=== PATIENT | female | born 1995 | race Caucasian/White ===

== ENCOUNTER 2020-05-02 16:30 | Inpatient (IN) | payer MEDICAID, SELFPAY ==
[~2020-05-02] VITALS: Ht 157.5 cm; Wt 107.5 kg
[2020-05-02] MEDS ORDERED: PNV91TAB8 PO (17:19)
[2020-05-02] MEDS ORDERED: METHYLERGONOVINE 0.2 MG/ML AMP IM PRN (17:20)
[2020-05-02] MEDS ORDERED: CARBOPROST 250 MCG/ML AMP IM PRN (17:20)
[2020-05-02 17:45] VITALS: BP 129/80
[2020-05-02] MEDS ORDERED: MISOPROSTOL 200 MCG TAB VG SCH (18:00)
[2020-05-02 18:09] LABS: BASOPHILS % (AUTO) 0.4 % (0.0-2.0); EOSINOPHILS % (AUTO) 0.5 % (0.0-4.0); HEMATOCRIT 37.9 % (36-48); HEMOGLOBIN 12.9 g/dL (12.0-16.0); LYMPHOCYTES # (AUTO) 2.1 K/uL (2.5-16.5); LYMPHOCYTES % (AUTO) 23.9 % (20.5-51.1); MEAN CORPUSCULAR HEMOGLOBIN 30 pg (27-31); MEAN CORPUSCULAR HGB CONC 34 g/dL (33-37); MEAN CORPUSCULAR VOLUME 89.1 fL (80-94); MONOCYTES # (AUTO) 0.7 K/uL (0.8-1.0); MONOCYTES % (AUTO) 7.6 % (1.7-9.3); NEUTROPHILS # (AUTO) 5.9 K/uL (1.8-7.7); NEUTROPHILS % (AUTO) 67.6 % (42.2-75.2); PLATELET COUNT (AUTO) 276 K/uL (140-450); RED BLOOD CELL COUNT(AUTO) 4.25 MIL/uL (4.20-5.40); RED CELL DISTRIBUTION WIDTH 14.2 % (11.6-13.7); WHITE BLOOD COUNT (AUTO) 8.7 K/uL (4.8-10.8)
[2020-05-02 18:19] LABS: APPEARANCE,URINE CLEAR (CLEAR); BILIRUBIN,URINE NEGATIVE (NEGATIVE); BLOOD, URINE NEGATIVE (NEGATIVE); COLOR,URINE DARK YELLOW (YELLOW); LEUKOCYTE ESTERASE ,URINE NEGATIVE (NEGATIVE); NITRITE, URINE NEGATIVE (NEGATIVE); UGLUCOSE NEGATIVE (NEGATIVE)
[2020-05-02 18:32] LABS: ALBUMIN 2.8 g/dL (3.4-5.0); CARBON DIOXIDE 23.8 mmol/L (21-32); CREATININE 0.6 mg/dL (0.6-1.3); POTASSIUM 3.8 mmol/L (3.5-5.1); TOTAL BILIRUBIN 0.4 mg/dL (0.0-1.0)
[2020-05-02] MEDS ORDERED: MORPHINE SULFATE 5 MG/ML VIAL IVP PRN (18:50)
[2020-05-02] MEDS ORDERED: MISOPROSTOL 25 MCG TAB ONE (20:30)
[2020-05-02] MEDS ORDERED: OXYTOCIN 20 UNITS in LACTATED RINGERS 1,000 ML IV SCH (20:40)
[2020-05-02] MEDS: LACTATED RINGERS 1,000 ML IV SCH (20:48)
[2020-05-03] MEDS: MISOPROSTOL 25 MCG TAB VG PRN ×3 (07:35→20:56)
--- NOTE | 2020-05-03 09:28 | NUR ---
PATIENT HAS BEEN SCREENED AND CATEGORIZED LOW NUTRITION RISK. PATIENT WILL BE SEEN WITHIN 7 DAYS OF ADMISSION. 05/09/[address]
[2020-05-03] MEDS ORDERED: MORPHINE SULFATE 10 MG/ML VIAL ONE (22:45)
[2020-05-03] MEDS: ONDANSETRON 4 MG/2 ML VIAL IVP PRN (22:52)
[2020-05-04] MEDS: LACTATED RINGERS 1,000 ML IV SCH ×2 (00:47→08:46)
[2020-05-04] MEDS ORDERED: OXYTOCIN 20 UNITS/LR PREMIX 1,000 ML IV ONE (05:40)
[2020-05-04] MEDS ORDERED: MORPHINE SULFATE 10 MG/ML VIAL ONE (09:20)
[2020-05-04 09:31] VITALS: BP 111/56
[2020-05-04] MEDS: ONDANSETRON 4 MG/2 ML VIAL IVP PRN (09:34)
[2020-05-04] MEDS ORDERED: ROPIVACAINE 0.2%/NS PREMIX 200 ML EPI ONE (11:37)
[2020-05-04] MEDS ORDERED: AMPICILLIN 1,000 MG VIAL ONE (14:30)
[2020-05-04] MEDS ORDERED: BENZOCAINE/MENTHOL 20%-0.5% 60 GM CAN TP PRN (15:25)
[2020-05-04] MEDS ORDERED: MEASLES, MUMPS, AND RUBELLA 1 VIAL SQVAC PRN (15:25)
[2020-05-04] MEDS ORDERED: bisacodyL 5 MG TABEC PO PRN (15:25)
[2020-05-04] MEDS ORDERED: DOCUSATE SODIUM 100 MG GELCAP PO PRN (15:25)
[2020-05-04] MEDS ORDERED: OXYTOCIN 10 UNITS/ML VIAL IM PRN (15:25)
[2020-05-04] MEDS ORDERED: IBUPROFEN 600 MG TAB PO PRN (15:25)
[2020-05-04] MEDS ORDERED: METHYLERGONOVINE 0.2 MG/ML AMP IM PRN (15:25)
[2020-05-04] MEDS ORDERED: METHYLERGONOVINE 0.2 MG TAB PO PRN (15:25)
[2020-05-04] MEDS ORDERED: SIMETHICONE 80 MG TAB.CHEW PO PRN (15:25)
[2020-05-04] MEDS ORDERED: IBUPROFEN 800 MG TAB PO PRN (15:25)
[2020-05-05 08:11] LABS: HEMATOCRIT 32.5 % (36-48)
== END 2020-05-06 13:40 | disposition home or self-care (01) | DRG 560 ==
LOC: MLD 16:30 → MFCC 05-04 17:53
PROVIDERS: ADMIT Obstetrics & Gynecology; ATTEND Obstetrics & Gynecology
PROC: 10E0XZZ Delivery of Products of Conception, External Approach (ICD-10-PCS; principal; 2020-05-04)
DX: O80 Encounter for full-term uncomplicated delivery (principal); Z3A.39 39 weeks gestation of pregnancy; Z37.0 Single live birth; Z20.828 Contact with and (suspected) exposure to other viral communicable diseases
CPT/HCPCS: 36415; 59200; 59409; 76815; 80053; 81003; 85018; 85025; 86592; 86886; 86900; 86901; J0290; J2270; J2405; J2590; J2795; J7120